=== PATIENT | female | born 1990 | race African-American/Black ===

== ENCOUNTER 2016-04-14 13:27 | Emergency (ER) | payer OTHER ==
[~2016-04-14] VITALS: Ht 160 cm; Wt 54.4 kg
[~2016-04-14 13:27] MED LIST: BACTRIM DS TAB1 EACH PO; CLEOCIN HCL150 MG PO; FLAGYL500 MG PO; FLONASE 0.05%50 MCG NASAL; FLORASTOR250 MG PO; IBUPROFEN 800800 MG PO; IRON325 PO; LO LOESTRIN FE1 EACH PO; MOBIC15 MG PO; NOHOMEMEDICATIONS; ONDANSETRON HCL4 M2 PO
[2016-04-14] MEDS ORDERED: HYDROCODONE-AP1 EAC6 PO (15:05)
[2016-04-14] MEDS ORDERED: NAPROSYN500 MG PO (15:05)
[2016-04-14 15:32] VITALS: BP 140/86
== END 2016-04-14 15:33 | disposition home or self-care (01) ==
LOC: ER 13:27
DX: L02.31 Cutaneous abscess of buttock (principal); F10.99 Alcohol use, unspecified with unspecified alcohol-induced disorder

== ENCOUNTER 2016-08-20 19:02 | Emergency (ER) | payer OTHER ==
[~2016-08-20] VITALS: Ht 162.6 cm; Wt 54.4 kg
[2016-08-20 19:02] VITALS: BP 124/81
[~2016-08-20 19:02] MED LIST changes: +HYDROCODONE-AP1 EAC6 PO; +NAPROSYN500 MG PO
[2016-08-20 19:21] LABS: URINE BILIRUBIN NEGATIVE (Negative); URINE BLOOD NEGATIVE (Negative); URINE COLOR YELLOW; URINE GLUCOSE-RANDOM* NEGATIVE (Negative); URINE KETONES NEGATIVE (Negative); URINE NITRITE NEGATIVE (Negative); URINE PROTEIN (DIPSTICK) NEGATIVE (Negative); URINE UROBILINOGEN 0.2 E.U./dl (0.2-1.0)
[2016-08-20 19:28] LABS: SQUAMOUS 0-3 Few /LPF (0-3); URINE RBC None Seen /HPF (0-2); URINE WBC 0-5 Rare /HPF (0-5)
[2016-08-20 19:29] LABS: BACTERIA None Seen /HPF (None Seen); CASTS None Seen /LPF (None Seen); CRYSTALS None Seen /LPF (None Seen)
[2016-08-20] MEDS ORDERED: FLAGYL500 MG PO (20:24)
[2016-08-21 17:09] LABS: CHLAMYDIA TRACHOMATIS-PCR Negative (Negative); NEISSERIA GONORRHEA-PCR Negative (Negative)
== END 2016-08-20 20:33 | disposition home or self-care (01) ==
LOC: ER 19:02
PROVIDERS: Physician Assistant
DX: N76.0 Acute vaginitis (principal); Z90.49 Acquired absence of other specified parts of digestive tract

== ENCOUNTER 2017-04-14 19:18 | Emergency (ER) | payer OTHER ==
[~2017-04-14] VITALS: Ht 160 cm; Wt 55.3 kg
[2017-04-14 19:28] LABS: URINE BILIRUBIN NEGATIVE (Negative); URINE BLOOD NEGATIVE (Negative); URINE CLARITY SL CLOUDY; URINE GLUCOSE-RANDOM* NEGATIVE (Negative); URINE KETONES NEGATIVE (Negative); URINE LEUKOCYTES 1+ (Negative); URINE NITRITE NEGATIVE (Negative); URINE PROTEIN (DIPSTICK) NEGATIVE (Negative); URINE UROBILINOGEN 0.2 E.U./dl (0.2-1.0)
[2017-04-14 19:29] LABS: URINE COLOR STRAW
[2017-04-14 19:39] LABS: SQUAMOUS >10 Many /LPF (0-3)
[2017-04-14 19:40] LABS: CASTS None Seen /LPF (None Seen); CRYSTALS None Seen /LPF (None Seen); URINE RBC 0-2 Rare /HPF (0-2); URINE WBC 0-5 Rare /HPF (0-5)
[2017-04-14] MEDS ORDERED: CARAFATE 1 GM TA1 G1 PO (20:13)
[2017-04-14] MEDS ORDERED: PEPCID20 MG PO (20:13)
[2017-04-14] MEDS ORDERED: FLAGYL500 MG PO (20:13)
== END 2017-04-14 20:28 | disposition home or self-care (01) ==
LOC: ER 19:18
PROVIDERS: Physician Assistant
DX: K29.00 Acute gastritis without bleeding (principal); N76.0 Acute vaginitis; Z90.49 Acquired absence of other specified parts of digestive tract

== ENCOUNTER 2017-06-25 12:40 | Emergency (ER) | payer OTHER ==
[~2017-06-25] VITALS: Ht 162.6 cm; Wt 54.4 kg
[~2017-06-25 12:40] MED LIST changes: +CARAFATE 1 GM TA1 G1 PO; +PEPCID20 MG PO
[2017-06-25 12:55] LABS: URINE BILIRUBIN NEGATIVE (Negative); URINE BLOOD NEGATIVE (Negative); URINE CLARITY CLEAR; URINE COLOR YELLOW; URINE GLUCOSE-RANDOM* NEGATIVE (Negative); URINE KETONES NEGATIVE (Negative); URINE LEUKOCYTES 1+ (Negative); URINE NITRITE NEGATIVE (Negative); URINE PROTEIN (DIPSTICK) NEGATIVE (Negative); URINE SPECIFIC GRAVITY 1.015 (1.005-1.035); URINE UROBILINOGEN 0.2 E.U./dl (0.2-1.0)
[2017-06-25 13:16] LABS: BACTERIA 1-9 Few /HPF (None Seen); CASTS None Seen /LPF (None Seen); CRYSTALS None Seen /LPF (None Seen); SQUAMOUS >10 Many /LPF (0-3); URINE RBC 0-2 Rare /HPF (0-2); URINE WBC 0-5 Rare /HPF (0-5)
[2017-06-25] MEDS ORDERED: DIFLUCAN150 MG PO (13:55)
[2017-06-25 14:24] VITALS: BP 132/76
[2017-06-28 15:07] LABS: NEISSERIA GONORRHEA-PCR Negative (Negative)
== END 2017-06-25 14:24 | disposition home or self-care (01) ==
LOC: ER 12:40
PROVIDERS: Physician Assistant
DX: N89.8 Other specified noninflammatory disorders of vagina (principal)

== ENCOUNTER 2018-08-26 10:08 | Emergency (ER) | payer OTHER ==
[~2018-08-26] VITALS: Ht 165.1 cm; Wt 54.0 kg
[~2018-08-26 10:08] MED LIST changes: +DIFLUCAN150 MG PO
[2018-08-26] MEDS ORDERED: CLINDAMYCIN PHOSPHAT VAG (10:20)
[2018-08-26] MEDS ORDERED: CLINDAMYCIN PHO40 GM VAG (10:23)
[2018-08-26 10:35] LABS: URINE BILIRUBIN NEGATIVE (Negative); URINE BLOOD NEGATIVE (Negative); URINE CLARITY CLEAR; URINE COLOR YELLOW; URINE GLUCOSE-RANDOM* NEGATIVE (Negative); URINE KETONES NEGATIVE (Negative); URINE LEUKOCYTES-REFLEX 2+ (Negative); URINE NITRITE-REFLEX NEGATIVE (Negative); URINE PROTEIN (DIPSTICK) NEGATIVE (Negative); URINE SPECIFIC GRAVITY <= 1.005 (1.005-1.035); URINE UROBILINOGEN 0.2 E.U./dl (0.2-1.0)
[2018-08-26 10:41] LABS: SQUAMOUS >10 Many /LPF (0-3)
[2018-08-26 10:42] LABS: BACTERIA-REFLEX 1-9 Few /HPF (None Seen); CASTS None Seen /LPF (None Seen); CRYSTALS None Seen /LPF (None Seen); URINE RBC None Seen /HPF (0-2); YEAST-REFLEX Present (None Seen)
[2018-08-26 10:43] LABS: URINE WBC-REFLEX 0-5 Rare /HPF (0-5)
[2018-08-26] MEDS ORDERED: DIFLUCAN150 M1 PO (11:18)
[2018-08-26] MEDS ORDERED: MOBIC7.5 MG PO (11:28)
[2018-08-26 11:30] VITALS: BP 118/74
== END 2018-08-26 11:30 | disposition home or self-care (01) ==
LOC: ER 10:08
PROVIDERS: Physician Assistant
DX: B37.3 Candidiasis of vulva and vagina (principal); N76.0 Acute vaginitis; T36.8X5A Adverse effect of other systemic antibiotics, initial encounter; Z90.49 Acquired absence of other specified parts of digestive tract; Y92.89 Other specified places as the place of occurrence of the external cause

== ENCOUNTER 2019-04-28 10:38 | Emergency (ER) | payer OTHER ==
[~2019-04-28] VITALS: Ht 162.6 cm; Wt 53.5 kg
[~2019-04-28 10:38] MED LIST changes: +CLINDAMYCIN PHO40 GM VAG; +CLINDAMYCIN PHOSPHAT VAG; +DIFLUCAN150 M1 PO; +MOBIC7.5 MG PO
[2019-04-28 11:12] LABS: URINE BILIRUBIN NEGATIVE (Negative); URINE BLOOD NEGATIVE (Negative); URINE CLARITY CLEAR; URINE COLOR YELLOW; URINE GLUCOSE-RANDOM* NEGATIVE (Negative); URINE KETONES NEGATIVE (Negative); URINE NITRITE-REFLEX NEGATIVE (Negative); URINE PROTEIN (DIPSTICK) NEGATIVE (Negative); URINE UROBILINOGEN 0.2 E.U./dl (0.2-1.0)
[2019-04-28 11:18] LABS: URINE LEUKOCYTES-REFLEX 1+ (Negative)
[2019-04-28 12:24] LABS: SQUAMOUS >10 Many /LPF (0-3)
[2019-04-28 12:25] LABS: BACTERIA-REFLEX 1-9 Few /HPF (None Seen); CASTS None Seen /LPF (None Seen); CRYSTALS None Seen /LPF (None Seen); URINE RBC None Seen /HPF (0-2); URINE WBC-REFLEX 0-5 Rare /HPF (0-5)
[2019-04-28] MEDS ORDERED: KEFLEX500 M1 PO (12:48)
[2019-04-28] MEDS ORDERED: PHENAZOPYRIDIN200 M2 PO (12:48)
[2019-04-28 12:57] VITALS: BP 120/60
== END 2019-04-28 13:00 | disposition home or self-care (01) ==
LOC: ER 10:38
PROVIDERS: Physician Assistant
DX: N39.0 Urinary tract infection, site not specified (principal); R30.0 Dysuria

== ENCOUNTER 2020-02-05 10:15 | Emergency (ER) | payer OTHER ==
[~2020-02-05] VITALS: Ht 167.6 cm; Wt 52.2 kg
[~2020-02-05 10:15] MED LIST changes: +KEFLEX500 M1 PO; +PHENAZOPYRIDIN200 M2 PO
[2020-02-05 10:43] LABS: URINE BILIRUBIN NEGATIVE (Negative); URINE BLOOD NEGATIVE (Negative); URINE CLARITY CLEAR; URINE COLOR YELLOW; URINE GLUCOSE-RANDOM* NEGATIVE (Negative); URINE KETONES NEGATIVE (Negative); URINE LEUKOCYTES-REFLEX 1+ (Negative); URINE NITRITE-REFLEX NEGATIVE (Negative); URINE PROTEIN (DIPSTICK) NEGATIVE (Negative); URINE UROBILINOGEN 0.2 E.U./dl (0.2-1.0)
[2020-02-05 11:13] LABS: SQUAMOUS 4-10 Moderate /LPF (0-3)
[2020-02-05 11:14] LABS: BACTERIA-REFLEX 1-9 Few /HPF (None Seen); CASTS None Seen /LPF (None Seen); CRYSTALS None Seen /LPF (None Seen); URINE RBC None Seen /HPF (0-2); URINE WBC-REFLEX 6-15 Few /HPF (0-5)
[2020-02-05] MEDS ORDERED: DIFLUCAN150 M1 PO (13:02)
[2020-02-05] MEDS ORDERED: FLAGYL500 M1 PO (13:02)
[2020-02-05 13:15] VITALS: BP 122/70
== END 2020-02-05 13:15 | disposition home or self-care (01) ==
LOC: ER 10:15
PROVIDERS: Emergency Medicine
DX: A59.01 Trichomonal vulvovaginitis (principal); A64 Unspecified sexually transmitted disease; Z79.899 Other long term (current) drug therapy